=== PATIENT | male | born 2000 | race Caucasian/White ===

== ENCOUNTER 2023-02-27 21:18 | Emergency (ER) | payer OTHER, SELFPAY ==
--- NOTE | ~2023-02-27 | XR_ITS ---
EXAMINATION: XR chest 1V portable DATE: 02/27/2023 22:18 INDICATION: Cough. TECHNIQUE: A single frontal view of the chest was obtained. COMPARISON: Chest single view 01/14/2018 FINDINGS: There are airspace opacities in left midlung zone. No pleural effusion or pneumothorax. The heart size is normal. IMPRESSION: 1. Airspace opacities in left midlung zone, consistent with pneumonia. Reviewed, dictated and finalized at location E. E [facility]PERATOR
[2023-02-27 21:20] VITALS: BP 101/57; PULSE 92; RESP 16; TEMP 36.9; O2SAT 98
--- NOTE | 2023-02-27 22:11 | ED.GENADULT ---
HPI - General Adult General Chief complaint: Upper Respiratory Infection Stated complaint: HENAO, sore throat, cough, chills, fever Time Seen by Provider: 02/27/23 21:26 Source: patient Mode of arrival: ambulatory Limitations: no limitations History of Present Illness HPI narrative: This is a 22-year-old male who presents to the ED with chief complaint of URI symptoms for the past 2 weeks. Patient reports sore throat, chills, headache, congestion. Reports 1 week ago he was diagnosed with positive strep test. He has been on both amoxicillin and azithromycin with minimal relief. Reports last Tylenol and ibuprofen were yesterday. He states the symptoms are just not getting better. He reports the cough is productive. He reports a little bit of chest tightness with the cough. Reports fever of 101.5 this morning. He states the fevers are well controlled with Tylenol. Denies shortness of breath, nausea, vomiting, neck pain, neck stiffness, back pain. Related Data Allergies Allergy/AdvReac Type Severity Reaction Status Date / Time No Known Allergies Allergy Unverified 04/10/18 12:47 Review of Systems Review of Systems: All systems as dictated in HPI Exam Narrative: GENERAL: Well-appearing, well-nourished, and in no acute distress. HEAD: Normocephalic, atraumatic. EYES: PERRLA and EOMI. ENT: Bilateral exudates noted to the tonsils. Minimal tonsillar swelling bilaterally. Uvula no trismus or drooling. No muffled voice. Nares clear, no rhinorrhea or epistaxis. Mucous membranes moist. Oropharynx without tonsillar hypertrophy exudate or other lesions. NECK: Supple. No adenopathy or masses. CHEST: No respiratory distress. Faint end-expiratory wheeze in the left upper lung field. Saturations 98%. HEART: Regular rate and rhythm. No murmur heard. Normal peripheral pulses. ABDOMEN: Soft, nontender, nondistended, normal active bowel sounds. MSK: Normal range of motion. No edema. SKIN: Warm, dry, no rash. NEURO: Alert and oriented x3. No focal deficits. PSYCH: Normal mood and affect. Course Vital Signs Vital signs: Vital Signs Temperature 98.5 F 02/27/23 21:20 Pulse Rate 92 02/27/23 21:20 Respiratory Rate 16 02/27/23 21:20 Blood Pressure 101/57 L 02/27/23 21:20 Pulse Oximetry 98 02/27/23 21:20 Temperature 98.5 F 02/27/23 21:20 Pulse Rate 81 02/27/23 23:42 Respiratory Rate 17 02/27/23 23:42 Blood Pressure 98/56 L 02/27/23 23:42 Pulse Oximetry 96 02/27/23 23:42 Medical Decision Making MDM Narrative Medical decision making narrative: This is a 22-year-old male who presents to the ED with chief complaint of cough and congestion past couple weeks. Vitals are normal. Afebrile. Exam reveals some faint wheezes the expiratory phase but otherwise unremarkable. He has recent diagnosis of strep throat and has completed the Z-Óscar. Given that his symptoms are not improving in that he is having productive cough, feels likely they may have an element of pneumonia going on as well. With the wheezing on exam I am suspicious of bronchitis. Questionable patchy infiltrate on the left lower lung field. Prescription for doxycycline given to cover for her sinusitis and atypical pneumonia. Again this may all be due to bronchitis so expectant management was given for this. Pt will be discharged in stable condition. Return precautions given and supportive measures discussed. Pt is understanding and agreeable with plan for discharge and follow-up with PCP. Vital Signs Vital Signs: Vital Signs Temperature 98.5 F 02/27/23 21:20 Pulse Rate 92 02/27/23 21:20 Respiratory Rate 16 02/27/23 21:20 Blood Pressure 101/57 L 02/27/23 21:20 Pulse Oximetry 98 02/27/23 21:20 Temperature 98.5 F 02/27/23 21:20 Pulse Rate 81 02/27/23 23:42 Respiratory Rate 17 02/27/23 23:42 Blood Pressure 98/56 L 02/27/23 23:42 Pulse Oximetry 96 02/27/23 23:42 Lab Data Labs: Lab
[2023-02-27 22:14] LABS: Influenza A QL RT-PCR Negative (Negative); Influenza B QL RT-PCR Negative (Negative); RSV RNA, RT-PCR Negative (Negative); SARS-CoV-2 RNA PCR Negative (Negative)
[2023-02-27] MEDS: IBUPROFEN 600 MG TABLET PO (22:22)
[2023-02-27] MEDS: guaiFENesin 12 HR 600 MG TABCR PO (22:52)
[2023-02-27 23:42] VITALS: BP 98/56; PULSE 81; RESP 17; O2SAT 96
== END 2023-02-27 23:45 | disposition home or self-care (01) ==
PROVIDERS: Emergency Provider Physician Assistant; PCP Family Medicine
DX: J40 Bronchitis, not specified as acute or chronic (principal); Z20.822 Contact with and (suspected) exposure to COVID-19
CPT/HCPCS: 71045; 87637; 96372; 99283; A9270; J1100